=== PATIENT | male | born 2000 | race Caucasian/White ===

== ENCOUNTER 2019-03-29 23:04 | Emergency (ER) | payer OTHER ==
[~2019-03-29] VITALS: Ht 182.9 cm; Wt 80.0 kg
[2019-03-30] MEDS ORDERED: NS 1,000 ML IV ONE (00:45)
[2019-03-30] MEDS ORDERED: KETOROLAC 30 MG/ML VIAL (J1885) IV ONE (00:45)
[2019-03-30] MEDS ORDERED: METOCLOPRAMIDE INJ 10MG/2ML VIAL (J2765) IV ONE (00:45)
[2019-03-30 01:04] LABS: BASO # 0.1 10^3/uL (0.0-0.2); BASO % 0.4 % (0.0-1.0); EOS % 0.2 % (0.0-3.0); HEMOGLOBIN 14.7 g/dl (13.5-17.5); LYMPH # 1.3 10^3/uL (1.5-6.5); LYMPH % 10.9 % (24.0-44.0); MEAN CORPUSCULAR HEMOGLOBIN 29.5 pg (27.0-33.0); MEAN CORPUSCULAR HGB CONC 32.7 g/dl (32.0-36.5); MEAN CORPUSCULAR VOLUME 90.4 fl (80.0-96.0); MONO # 0.4 10^3/uL (0.0-0.8); MONO % 3.1 % (0.0-5.0); NEUTROPHILS # 10.3 10^3/uL (1.8-7.7); NEUTROPHILS % 85.2 % (36.0-66.0); PLATELET COUNT, AUTOMATED 244 10^3/uL (150-450); RED BLOOD COUNT 4.98 10^6/uL (4.30-6.10); WHITE BLOOD COUNT 12.1 10^3/uL (4.0-10.0)
[2019-03-30 01:44] LABS: BLOOD UREA NITROGEN 22 MG/DL (7-18); CALCIUM LEVEL 9.1 MG/DL (8.5-10.1); CARBON DIOXIDE LEVEL 28 MEQ/L (21-32); CHLORIDE LEVEL 107 MEQ/L (98-107); CREATININE FOR GFR 1.23 MG/DL (0.70-1.30); GLUCOSE, FASTING 100 MG/DL (70-100); POTASSIUM SERUM 4.3 MEQ/L (3.5-5.1); SODIUM LEVEL 141 MEQ/L (136-145)
[2019-03-30] MEDS ORDERED: IBUP-1022 PO (02:04)
[2019-03-30] MEDS ORDERED: MECLIZINE 25 MG TABLET PO ONE (02:15)
[2019-03-30] MEDS ORDERED: MECL-68 PO (02:45)
[2019-03-30 02:55] VITALS: BP 141/74
== END 2019-03-30 02:57 | disposition home or self-care (01) ==
LOC: M ED 23:04
DX: R51 Headache (principal)
CPT/HCPCS: 80048; 85025; 96361; 96374; 96375; 99284; J1885; J2765

== ENCOUNTER 2019-10-07 23:25 | Emergency (ER) | payer OTHER ==
[~2019-10-07] VITALS: Ht 177.8 cm; Wt 84.5 kg
[~2019-10-07 23:25] MED LIST: IBUP-1022 PO; MECL1TAB31 PO
[2019-10-07 23:26] VITALS: BP 125/74
[2019-10-07] MEDS ORDERED: CELE50CA PO (23:36)
[2019-10-07] MEDS ORDERED: GNP1000T11 PO (23:36)
--- NOTE | 2019-10-08 02:10 | REPVR ---
PROCEDURE INFORMATION: Exam: US Scrotum Exam date and time: 10/08/2019 1:40 AM Age: 19 years old Clinical indication: Scrotum pain TECHNIQUE: Imaging protocol: Real-time ultrasound of the scrotum and contents with color Doppler and image documentation. COMPARISON: No relevant prior studies available. FINDINGS: Right testicle: Normal measuring 4.5 x 2.3 x 2.8 cm. No mass. No torsion. Normal vascular flow. Left testicle: Normal measuring 4.6 x 2.1 x 2.8 cm. . No mass. No torsion. Normal vascular flow. Epididymides: Normal. Scrotum: Normal. IMPRESSION: Normal scrotal ultrasound. Electronically signed by: Cheryl Benitez On 10/08/2019 02:10:03 AM
[2019-10-08 05:51] LABS: CHLAMYDIA DNA AMPLIFICATION POSITIVE (NEGATIVE); GC DNA AMPLIFICATION NEGATIVE (NEGATIVE)
== END 2019-10-08 04:26 | disposition home or self-care (01) ==
LOC: M ED 23:25
DX: R36.1 Hematospermia (principal); Z79.1 Long term (current) use of non-steroidal anti-inflammatories (NSAID); Z79.899 Other long term (current) drug therapy

== ENCOUNTER 2020-02-06 21:57 | Emergency (ER) | payer OTHER ==
[~2020-02-06] VITALS: Ht 177.8 cm; Wt 84.1 kg
[~2020-02-06 21:57] MED LIST changes: +CELE50CA PO; +GNP1000T11 PO
[2020-02-06] MEDS ORDERED: KETOROLAC 60MG 2ML VIAL IM ONE (22:45)
[2020-02-06] MEDS ORDERED: IBUP80TA PO (23:03)
[2020-02-06 23:21] VITALS: BP 118/78
--- NOTE | 2020-02-07 08:38 | REP ---
Right hand series: Four views. History: Injury of the right hand. Findings: Four views of the right hand demonstrate overall normal mineralization. Bones, joints, and soft tissues are unremarkable. Impression: No fracture seen. Negative right hand radiographs. Electronically Signed by Doyle Han MD 02/07/2020 08:29 A
== END 2020-02-06 23:22 | disposition home or self-care (01) ==
LOC: M ED 21:57
DX: S66.901A Unspecified injury of unspecified muscle, fascia and tendon at wrist and hand level, right hand, initial encounter (principal); X58.XXXA Exposure to other specified factors, initial encounter; Y92.89 Other specified places as the place of occurrence of the external cause; Y93.89 Activity, other specified; Y99.1 Military activity
CPT/HCPCS: 29125; 73130; 96372; 99283; J1885